=== PATIENT | male | born 1985 | race Caucasian/White ===

== ENCOUNTER 2016-11-30 04:49 | Emergency (ER) | payer BC ==
[~2016-11-30] VITALS: Ht 175.3 cm; Wt 69.7 kg
[2016-11-30 05:31] LABS: HEMATOCRIT 41.5 % (38.0-50.0); MCH 30.9 PG (29.0-34.0); MEAN PLAT.VOLUME 8.9 uM^3 (9.0-12.4); PLATELET COUNT 246 K/uL (156-360); RBC DIS.WIDTH-CV 11.7 % (11.8-14.6); RBC DIS.WIDTH-SD 38.7 % (39-53); RED BLOOD COUNT 4.56 M/uL (4.00-5.50); WHITE BLOOD COUNT 5.5 K/uL (4.1-10.2)
[2016-11-30 05:35] LABS: CHLORIDE 104 mEq/L (99-109); POTASSIUM 4.2 mEq/L (3.7-5.4); SODIUM 139 mEq/L (136-147)
[2016-11-30 05:36] LABS: GLUCOSE 142 mg/dL (70-99)
[2016-11-30 05:38] LABS: ANION GAP 11 MEQ/L (2-14)
[2016-11-30 05:40] LABS: GFR ESTIMATE (CALCULATED) > 59 mL/min/
[2016-11-30 05:41] LABS: UREA NITROGEN (BUN) 21 mg/dL (9-23)
[2016-11-30 06:59] LABS: ADD MIUA? YES; BILIRUBIN NEGATIVE; BLOOD MODERATE; COLOR YELLOW ((YELLOW)); GLUCOSE (STRIP) NEGATIVE; KETONES NEGATIVE; LEUKOCYTES NEGATIVE; NITRITE NEGATIVE; PROTEIN (STRIP) NEGATIVE; SPECIFIC GRAVITY 1.025 (1.000-1.030); UROBILINOGEN 0.2 MG/DL (0.2-1.0)
[2016-11-30 07:06] LABS: BACTERIA NONE SEEN /HPF; EPITHELIAL CELLS NONE SEEN /HPF; MUCUS TRACE /LPF; RED BLOOD CELLS TNTC /HPF (0-5); UCUL ADDED? YES; WHITE BLOOD CELLS 0-5 /HPF (0-5)
[2016-11-30] MEDS ORDERED: PERCOCET 5/31 TABLET PO (10:41)
[2016-11-30] MEDS ORDERED: FLOMAX0.4 MG PO (10:41)
[2016-11-30] MEDS ORDERED: ZOFRAN4 MG PO (10:41)
[2016-11-30 10:45] VITALS: BP 131/73
== END 2016-11-30 11:18 | disposition home or self-care (01) ==
LOC: EME 04:49
PROVIDERS: Emergency Medicine
DX: N20.2 Calculus of kidney with calculus of ureter (principal)
CPT/HCPCS: 74176; 80048; 81003; 85027; 87086; 99281; 99285; J7030